=== PATIENT | female | born 1940 | race Caucasian/White ===

== ENCOUNTER 2017-08-13 16:41 | Inpatient (IN) | payer MEDICARE ==
[~2017-08-13] VITALS: Ht 172.7 cm; Wt 78.9 kg
[2017-08-13 16:50] VITALS: BP 128/66
[2017-08-13] MEDS ORDERED: KLOR-CON 1010 MEQ PO (16:52)
[2017-08-13] MEDS ORDERED: LASIX 40 MG TAB40 M2 PO (16:52)
[2017-08-13] MEDS ORDERED: CARVEDILOL3.125 MG PO (16:53)
[2017-08-13] MEDS ORDERED: LISINOPRIL5 MG PO (16:53)
[2017-08-13] MEDS ORDERED: GLIPIZIDE 10 MG10 MG PO (16:53)
[2017-08-13] MEDS ORDERED: LEVEMIR SUBQ (16:54)
[2017-08-13] MEDS ORDERED: SYNTHROID100 MCG PO (16:54)
[2017-08-13] MEDS ORDERED: ASPIR 8181 MG PO (16:54)
[2017-08-13] MEDS ORDERED: COUMADIN 3 MG TA3 M1 PO (16:54)
[2017-08-13 17:48] LABS: INFLUENZA A ANTIGEN None Detected (None Detect); INFLUENZA B ANTIGEN None Detected (None Detect)
[2017-08-13 17:50] LABS: HEMATOCRIT 38.4 % (37.0-47.0); HEMOGLOBIN 12.7 gm/dL (12.0-15.0); MCH 29.9 pg (26.0-34.0); MCV 90.7 fL (80.0-100.0); MPV 8.4 fl. (7.2-11.1); NUCLEATED RBCS 0 /100WBC; PLATELET COUNT* 361 thou/uL (150-400); RBC 4.24 mil/uL (4.20-5.00); RDW-CV 14.9 % (10.5-14.5); WBC 15.3 thou/uL (4.0-11.0)
[2017-08-13 17:56] LABS: ANION GAP 11 mmol/L (7-16); BUN 24 mg/dL (7-18); CALCIUM 8.8 mg/dL (8.5-10.1); CHLORIDE 100 mmol/L (98-107); CO2 25 mmol/L (21-32); CREATININE 1.3 mg/dL (0.6-1.3); GLUCOSE 302 mg/dL (70-99); POTASSIUM 3.8 mmol/L (3.5-5.1); SODIUM 136 mmol/L (136-145)
[2017-08-13 17:58] LABS: APTT 33.1 Seconds (25.0-31.3); PROTIME 19.4 Seconds (9.20-11.50)
[2017-08-13 18:07] LABS: ALBUMIN 2.6 g/dL (3.4-5.0); ALKALINE PHOSPHATASE 111 U/L (46-116); NT-PRO BRAIN NAT PEPTIDE 13598 pg/mL (<300); SGOT 28 U/L (15-37); SGPT 33 U/L (30-65); TOTAL BILIRUBIN 0.8 mg/dL (<0.1-1.0); TOTAL PROTEIN 7.3 g/dL (6.4-8.2); TROPONIN-I LEVEL <0.06 ng/mL (<0.06); URIC ACID* 6.5 mg/dL (2.6-7.2)
[2017-08-13 18:21] LABS: ABSOLUTE LYMPHOCYTES 1.2 thou/uL (0.8-5.3); ABSOLUTE NEUTROPHILS 13.3 thou/uL (1.6-8.1)
[2017-08-13 18:22] LABS: ABSOLUTE MONOCYTES 0.8 thou/uL (0.0-1.2); PLATELET ESTIMATE ADEQUATE
[2017-08-13 18:31] LABS: URINE BILIRUBIN NEGATIVE (Negative); URINE BLOOD 2+ (Negative); URINE CLARITY SL CLOUDY; URINE COLOR YELLOW; URINE GLUCOSE-RANDOM NEGATIVE (Negative); URINE KETONES NEGATIVE (Negative); URINE LEUKOCYTES 3+ (Negative); URINE NITRITE POSITIVE (Negative); URINE PROTEIN 1+ (Negative)
[2017-08-13 18:37] LABS: CASTS None Seen /LPF (None Seen); CRYSTALS None Seen /LPF (None Seen); SQUAMOUS >10 Many /LPF (0-3); URINE RBC 0-2 Rare /HPF (0-2); URINE WBC >25 Many /HPF (0-5)
[2017-08-13 18:56] LABS: ESR (SEDRATE) 69 mm/hr (0-30)
[2017-08-13 19:55] VITALS: BP 126/70
[2017-08-13 20:00] VITALS: BP 132/72
[2017-08-14] VITALS (7 sets, daily range): BP systolic 130–160; BP diastolic 85–92
[2017-08-14 04:22] LABS: ABSOLUTE LYMPHOCYTES 0.5 thou/uL (0.8-5.3); ABSOLUTE MONOCYTES 0.1 thou/uL (0.0-1.2); ABSOLUTE NEUTROPHILS 9.6 thou/uL (1.6-8.1); BASOPHILS 0.1 %; HEMATOCRIT 37.9 % (37.0-47.0); HEMOGLOBIN 12.3 gm/dL (12.0-15.0); LYMPHOCYTES 4.9 %; MCH 29.5 pg (26.0-34.0); MCHC 32.6 g/dL (28.0-37.0); MCV 90.7 fL (80.0-100.0); MONOCYTES 1.1 %; MPV 8.2 fl. (7.2-11.1); NUCLEATED RBCS 0 /100WBC; PLATELET COUNT* 315 thou/uL (150-400); POLYS 93.9 %; RBC 4.18 mil/uL (4.20-5.00); RDW-CV 15.1 % (10.5-14.5); WBC 10.3 thou/uL (4.0-11.0)
[2017-08-14 04:39] LABS: INR 2.1; PROTIME 20.1 Seconds (9.20-11.50)
[2017-08-14 04:54] LABS: CALCIUM 8.2 mg/dL (8.5-10.1); CREATININE 1.1 mg/dL (0.6-1.3)
[2017-08-15] VITALS (8 sets, daily range): BP systolic 142–150; BP diastolic 81–94
[2017-08-15 05:42] LABS: ABSOLUTE LYMPHOCYTES 0.8 thou/uL (0.8-5.3); ABSOLUTE MONOCYTES 0.6 thou/uL (0.0-1.2); ABSOLUTE NEUTROPHILS 14.5 thou/uL (1.6-8.1); BASOPHILS 0.2 %; HEMATOCRIT 37.5 % (37.0-47.0); HEMOGLOBIN 12.3 gm/dL (12.0-15.0); LYMPHOCYTES 5.2 %; MCH 29.5 pg (26.0-34.0); MCHC 32.7 g/dL (28.0-37.0); MCV 90.1 fL (80.0-100.0); MONOCYTES 3.5 %; MPV 8.5 fl. (7.2-11.1); NUCLEATED RBCS 0 /100WBC; PLATELET COUNT* 379 thou/uL (150-400); POLYS 91.1 %; RBC 4.17 mil/uL (4.20-5.00); RDW-CV 15.2 % (10.5-14.5)
[2017-08-15 05:51] LABS: INR 2.2; PROTIME 21.4 Seconds (9.20-11.50)
[2017-08-15 05:59] LABS: ALBUMIN 2.5 g/dL (3.4-5.0); CALCIUM 8.6 mg/dL (8.5-10.1); CREATININE 1.2 mg/dL (0.6-1.3); POTASSIUM 4.1 mmol/L (3.5-5.1); TOTAL BILIRUBIN 0.4 mg/dL (<0.1-1.0); TOTAL PROTEIN 6.9 g/dL (6.4-8.2)
[2017-08-15 09:09] LABS: GLYCOHEMOGLOBIN (HGB A1C) 7.7 % (4.8-5.6)
--- NOTE | 2017-08-15 15:29 | EKG ---
[place] [address] ELECTROCARDIOGRAM REPORT Name: MILIND GRAJEDA Room: [address] ADM IN .R.#: [id number] Admission: 08/13/17 Attend Phys: Rikki Castro MD Discharge: Date of : 36 Report #: [id number] THIS REPORT FOR: //name// [facility] ED Test Date: 2017-08-13 Test Time: 17:29:07 Pat Name: MILIND GRAJEDA Department: Room: [facility] Gender: Head School Custodian: Marc DANIELLE : 1940 Requested By: Brittany Irby Order Number: [id number] MD: Cricket Khoury Measurements Intervals [place] Rate: 90 P: IN: QRS: -38 QRSD: 128 T: -2 QT: 417 QTc: 511 Interpretive Statements Atrial fibrillation Nonspecific IVCD with LAD LVH with secondary repolarization abnormality Anterior Q waves, possibly due to LVH No previous ECG available for comparison Electronically Signed On 08-15-2017 15:29:26 ROTARY SCREEN PRINTING MACHINE OPERATOR by Cricket Khoury [email or web address] <ELECTRONICALLY SIGNED> By: Cricket Khoury MD, FACC 08/15/17 1529 1729 1729 Cricket Khoury MD, [facility] /EPI
--- NOTE | 2017-08-15 15:32 | EKG ---
[place] [address] ELECTROCARDIOGRAM REPORT Name: MILIND GRAJEDA Room: [address] ADM IN M.R.#: [id number] Admission: 08/13/17 Attend Phys: Rikki Castro MD Discharge: Date of : 38 Report #: [id number] THIS REPORT FOR: //name// [facility] Test Date: 2017-08-13 Test Time: 20:59:25 Pat Name: MILIND GRAJEDA Department: Room: [address] Gender: F Pre Owned Sales Consultant: JENNIFER : 1940 Requested By: Rikki Castro Order Number: [id number] Valeria MD: Cricket Khoury Measurements Intervals [place] Rate: 100 P: SC: QRS: -79 QRSD: 125 T: 184 QT: 395 QTc: 510 Interpretive Statements Atrial fibrillation Nonspecific IVCD with LAD Consider anterior infarct Nonspecific T abnormalities, lateral leads Baseline wander in lead(s) V2 No previous ECG available for comparison Electronically Signed On 08-15-2017 15:31:47 DISPENSING OPERATOR by Cricket Khoury [email or web address] <ELECTRONICALLY SIGNED> By: Cricket Khoury MD, FACC 08/15/17 1531 58 58 Cricket Khoury MD, FAC /EPI
--- NOTE | 2017-08-15 15:45 | EKG ---
[place] [address] ELECTROCARDIOGRAM REPORT Name: MILIND GRAJEDA Room: [address] ADM IN .R.#: [id number] Admission: 08/13/17 Attend Phys: Rikki Castro MD Discharge: Date of : 36 Report #: [id number] THIS REPORT FOR: //name// [facility] Test Date: 2017-08-14 Test Time: 20:48:09 Pat Name: MILIND GRAJEDA Department: Room: [address] Gender: F Data Entry: : 1940 Requested By: Rikki Castro Order Number: [id number] Reading MD: Cricket Khoury Measurements Intervals [place] Rate: 119 P: MT: QRS: 143 QRSD: 130 T: 215 QT: 359 QTc: 506 Interpretive Statements Atrial fibrillation Nonspecific intraventricular conduction delay Anteroseptal infarct, old Borderline repolarization abnormality No previous ECG available for comparison Electronically Signed On 08-15-2017 15:45:39 BELT LINE FEEDER by Cricket Khoury [email or web address] <ELECTRONICALLY SIGNED> By: Cricket Khuory MD, [facility] 08/15/17 1545 47 47 Cricket Khoury MD, FACC /EPI
--- NOTE | 2017-08-15 16:55 | CON ---
[address] [address] CONSULTATION Name: MILIND GRAJEDA Room: [address] ADM IN M.R.#: [id number] Admission: 08/13/17 Attend Phys: Rikki Castro MD Discharge: Date of : 38 Report #: [id number] THIS REPORT FOR: //name// CC: Rikki Triplett MD [facility] Amberly Patton MD INDICATION: Atrial fibrillation with rapid ventricular response rate, palpitations, shortness of breath, and chest pain. HISTORY OF PRESENT ILLNESS: The patient is a 77-year-old white female who was admitted to the hospital yesterday on after family noted her to be somewhat short of breath and having rapid heart rate. In the emergency room, she was found to have rapid ventricular response to her chronic atrial fibrillation. She was started on a diltiazem drip for rate control with improvement in her symptoms. She reports chest pain chronically. This apparently is nothing new to her. It is intermittent and worse with activity consistent with angina. She had some dyspnea and shortness of breath that also improved with rate control. She does not appear dyspneic at the time of my interview. She has been placed on IV Lasix with prompt and good response. At the time of my interview, she is without cardiac complaint. She continues to have a slightly rapid ventricular response to her chronic atrial fibrillation. Her primary land conservation specialist had discussed biventricular ICD placement after a recent echocardiogram showed drop in EF to 30-35%. At this point in time, she wishes to continue to think about that. She is also refused invasive evaluation for a positive stress test earlier this year in August. The stress test showed evidence of anterolateral infarct with periinfarct ischemia. Her labs show an elevated NT-proBNP consistent with acute exacerbation of her chronic systolic heart failure. Her troponins are less than 0.06 indicating no significant myocardial necrosis at this time. PAST MEDICAL HISTORY: 1. Ischemic cardiomyopathy, EF 30-35%. 2. Chronic atrial fibrillation. 3. Type 2 diabetes mellitus. 4. Hypertension. 5. Chronic left bundle branch block. 6. History of coronary artery disease based on noninvasive studies. 7. Stress testing 09/01/2016, that showed anterolateral infarct with periinfarct ischemia and an EF of 51%. PAST SURGICAL HISTORY: 1. Hysterectomy. 2. Tonsillectomy. 3. Partial thyroide[place] [address] CONSULTATION Name: MILIND GRAJEDA Room: [address]#: [id number] Admission: 08/13/17 Attend Phys: Rikki Castro MD Discharge: Date of : 38 Report #: [id number] FAMILY HISTORY: The patient's father at 59 with heart disease. The patient's mother at 57 with heart disease. SOCIAL HISTORY: The patient is . She does not smoke. She does not drink alcohol. ALLERGIES: She has no medical allergies. HOME MEDICATIONS: Aspirin 81 mg daily, carvedilol 3.125 mg b.i.d., furosemide 40 mg p.o. b.i.d., glipizide 10 mg daily, Levemir 100 units or dose unknown daily, Synthroid 100 mcg daily, lisinopril 5 mg daily, potassium chloride 10 mEq daily, and warfarin 3 mg daily. REVIEW OF SYSTEMS: A 14-point review of systems is positive for convulsions as a child, cough, COPD, emphysema, palpitations, chest pain, dyspnea, orthopnea, paroxysmal nocturnal dyspnea, syncope or near syncope, murmurs, diabetes, thyroid disease, anemia, history of thyroid cancer status post thyroidectomy, glasses without acute visual loss, decreased hearing and partial dentures. Otherwise, 14-point review of systems is negative. PHYSICAL EXAMINATION: VITAL SIGNS: Blood pressure 144/81, pulse is in the low 100s and irregular. GENERAL: This is a pleasant lady, in no distress. Mood and affect appropriate. HEENT: The patient is wearing glasses. Extraocular muscles intact. Mucous membranes are moist. NECK: Shows no jugular venous distention. I do not appreciate carotid bruit. CHEST: Reveals clear lung [place] without wheezes or rales. CARDIAC: Reveals an irregularly irregular rhythm that is slightly tachycardic. I do not appreciate obvious murmur or gallop. ABDOMEN: Reveals normal bowel sounds. The abdomen is soft and nontender. EXTREMITIES: Shows no edema. Peripheral pulses are palpable. SKIN: Warm and dry. A 12-lead EKG shows atrial fibrillation, left bundle branch block and rapid ventricular response rate. CT of the chest shows bilateral pleural effusions that are small. Portable chest x-ray shows bibasilar densities consistent with effusion and/or atelectasis and cardiomegaly. Labs are reviewed. Sodium 142, potassium 4.1, chloride 110, bicarb 20, BUN 37, creatinine 1.2, serum glucose 163. Troponin less than 0.06 on 2 separate occasions. NT-proBNP 13,598. White blood cell count 16.0, hemoglobin 12.3, and platelet count 379,000. IMPRESSION AND RECOMMENDATIONS: 1. Acute on chronic systolic heart failure. Continue IV Lasix for adequate diuresis. May need to adjust home doses depending on her response. Continue [facility] [address] [place] [address] CONSULTATION Name: MILIND GRAJEDA Room: [address] IN M.R.#: [id number] Admission: 08/13/17 Attend Phys: Rikki Castro MD Discharge: Date of : 38 Report #: [id number] potassium supplement. Start electrolyte protocol. Repeat echocardiogram. 2. Chest pain. Troponins are negative thus far. She has a recent stress test that shows positive results. I would like to repeat to see if this has worsened at all and rediscuss invasive evaluation with the patient. 3. Atrial fibrillation with rapid ventricular response, increasing carvedilol at this time. The patient is on a diltiazem drip. She may need multiple agents for adequate rate control. 4. Ischemic cardiomyopathy, presently with exacerbation of heart failure. She is on IV Lasix. Increasing carvedilol, continue lisinopril at current dose. She is pondering whether or not to proceed with biventricular ICD placement. Echo results pending. 5. Hypertension. Blood pressure appears to be relatively well controlled at this point in time. 6. Possible hyperlipidemia. We will check fasting lipid profile. 7. Type 2 diabetes mellitus, per primary physician. <ELECTRONICALLY SIGNED> By: Cricket Khoury MD, [facility] 08/15/17 1655 1006 [id number] Alber Khoury MD, FACC /nt
[2017-08-16] VITALS: BP 146/70
[2017-08-16 04:00] VITALS: BP 149/94
[2017-08-16 04:53] LABS: INR 2.6; PROTIME 24.9 Seconds (9.20-11.50)
[2017-08-16 06:24] LABS: ANION GAP 14 mmol/L (7-16); BUN 40 mg/dL (7-18); CALCIUM 8.4 mg/dL (8.5-10.1); CHLORIDE 112 mmol/L (98-107); CHOLESTEROL 134 mg/dL (<200); CO2 19 mmol/L (21-32); CREATININE 1.3 mg/dL (0.6-1.3); GLUCOSE 78 mg/dL (70-99); HDL CHOLESTEROL 31 mg/dL (>40); LDL CHOLESTEROL 87 mg/dL (<100); POTASSIUM 4.3 mmol/L (3.5-5.1); SERUM ASSESSMENT Clear; SODIUM 145 mmol/L (136-145); TC:HDL 4.3 Ratio (Not establshd); TRIGLYCERIDE 82 mg/dL (<150); VLDL 16 mg/dL (<40)
[2017-08-16 08:30] VITALS: BP 146/92
[2017-08-16 11:26] VITALS: BP 143/71
[2017-08-16 16:00] VITALS: BP 141/77
--- NOTE | 2017-08-16 16:24 | CARDNUC ---
[place] [address] CARDIAC NUCLEAR IMAGING REPORT Name: MILIND GRAJEDA Room: [address] IN [facility]#: [id number] Admission: 08/13/17 Attend Phys: Rikki Castro, Discharge: Date of : 36 Date of Service: 08/16/17 1624 Report #: [id number] THIS REPORT FOR: //name// APPROVED REPORT Exam: Nuclear Stress Test Indication: Chest pain, Dyspnea, Atrial Fibrillation Patient Location: In-Patient Room #: 209 Stress Tech: Yazmin Paniagua Stress Nurse: Judy Heaton RN NM Tech:DANTE Kaur Ht: 5 ft 8 in Wt: 174 lbs BSA: 1.93 m2 BMI: 26.45 Medical History Medical History: mi,cad,htn,dm,lbbb Medications: Carvedilol, hydralaziine, diltiazem, warfain, aspirin, lisinopril Allergies: nkda Cardiac Risk Factors: Age, FHX of CAD, HTN, , DM Stress Test Details Stress Test: Pharmacologic stress testing performed using 0.4 mg of regadenoson per 5 mL given IV over 10 seconds. Reason for pharmacologic stress test: physical limitation. HR Resting HR: 97 bpm Max Heart Rate (APMHR): 141 bpm Max HR Achieved: 97 bpm Target HR (85% APMHR): 119 bpm % of APMHR: 68 Recovery HR: 102 bpm BP Resting BP: 164/110 mmHg Max BP: 164/79 mmHg ECG Resting ECG: atrial fibrillation, left bundle-branch block Stress ECG: atrial fibrillation, left bundle-branch block ST Change: None Arrhythmia: [place] [address] CARDIAC NUCLEAR IMAGING REPORT Name: MILIND GRAJEDA Room: [address] IN [facility]#: [id number] Admission: 08/13/17 Attend Phys: Rikki Castro, Discharge: Date of : 36 Date of Service: 08/16/17 1624 Report #: [id number] Recovery ECG: atrial fibrillation, left bundle-branch block Recovery ST Change: None Recovery Arrhythmia: None Clinical Reason for Termination: Completed protocol Stress Symptoms: shortness of breath Exercise duration: 0 min sec Exercise capacity: 1 METs Functional Aerobic Impairment 72% The patient had no chest discomfort with Lexiscan infusion. Nurse Comments pt co soa resolved with caffeine Stress ECG Conclusion The baseline 12-lead EKG showed atrial fibrillation with left bundle-branch block. EKGs obtained during and post Lexiscan infusion showed atrial fibrillation with left bundle-branch block. NM EXAM: Myocardial Perfusion REST/STRESS Imaging Protocol: Rest Tc-99m/Stress Tc-99m 1 day Resting Data Rest SPECT myocardial perfusion imaging was performed in supine position 60 minutes following the intravenous injection of 10.8 mCi of Tc-99m Sestamibi. Time of rest injection: 0745 Time of rest imagin The images were gated to evaluate regional wall motion and calculate left ventricular ejection fraction. Administration Route: IV Pharmacologic Stress Pharmacologic stress test was performed by injecting Regadenoson 0.4 mg IV push followed by the intravenous injection of 33.6 mCi of Tc-99m Sestamibi. Time of stress injection: 0945 Time of stress imagin Administration Route: IV Gated Stress SPECT was performed 40 minutes after stress injection. The images were gated to evaluate regional wall motion and calculate left [place] [address] CARDIAC NUCLEAR IMAGING REPORT Name: MILIND GRAJEDA Room: [address]#: [id number] Admission: 08/13/17 Attend Phys: Rikki Castro, Discharge: Date of : 36 Date of Service: 08/16/17 1624 Report #: [id number] Study Quality Study: Fair Artifact: Mild Breast artifact Study Data At rest, the left ventricular ejection fraction was 30%.. Post stress, the left ventricular ejection was 39%.. TID = 0.91. Underlying left bundle branch block renders gated images less reliable in the determination of overall left ventricular systolic function. Recommend echocardiographic verification. Perfusion There is a moderate size mild intensity defect in the mid to distal anterior wall that resolves somewhat with prone imaging on rest and stress images consistent with breast attenuation artifact. No other defects are identified. Wall Motion Due to underlying left bundle branch block gated images are not reliable. Nuclear Conclusion ECG Findings: non-diagnostic Clinical Findings: negative for ischemia Nuclear Findings: negative for ischemia Exercise Capacity: not assessed Left Ventricular Function: unable to assess accurately Risk Study: low No reversible defects are identified to suggest inducible ischemia. There is a fixed defect of the mid to distal anterior wall that resolves mostly with prone imaging consistent with breast attenuation artifact. Gated images are not reliable for estimated left ventricular function due to underlying left bundle branch block. Recommend echo follow-up. <Conclusion> The baseline 12-lead EKG showed atrial fibrillation with left bundle-branch block. EKGs obtained during and post Lexiscan infusion showed atrial fibrillation with left bundle-branch block. <ELECTRONICALLY SIGNED> By: Cricket Khoury MD, FACC 08/16/17 1624 1624 1624 Cricket Khoury MD, FACC /INF
[2017-08-16 20:00] VITALS: BP 150/69
[2017-08-17] VITALS: BP 136/84
[2017-08-17 04:00] VITALS: BP 138/97
[2017-08-17 04:46] LABS: MCH 29.9 pg (26.0-34.0); MCHC 33.2 g/dL (28.0-37.0); NUCLEATED RBCS 0 /100WBC; PLATELET COUNT* 361 thou/uL (150-400); RDW-CV 15.2 % (10.5-14.5); WBC 14.4 thou/uL (4.0-11.0)
[2017-08-17 04:54] LABS: ALBUMIN 2.5 g/dL (3.4-5.0); CALCIUM 8.4 mg/dL (8.5-10.1); CREATININE 1.4 mg/dL (0.6-1.3); POTASSIUM 4.3 mmol/L (3.5-5.1); TOTAL BILIRUBIN 0.5 mg/dL (<0.1-1.0); TOTAL PROTEIN 6.4 g/dL (6.4-8.2)
[2017-08-17 05:02] LABS: INR 2.5; PROTIME 24.2 Seconds (9.20-11.50)
[2017-08-17 05:58] LABS: ABSOLUTE LYMPHOCYTES 0.7 thou/uL (0.8-5.3); ABSOLUTE MONOCYTES 0.4 thou/uL (0.0-1.2); ABSOLUTE NEUTROPHILS 13.2 thou/uL (1.6-8.1); ANISOCYTOSIS 1+; PLATELET ESTIMATE ADEQUATE
[2017-08-17 05:59] LABS: POIKILOCYTOSIS 1+
[2017-08-17 08:00] VITALS: BP 162/109
[2017-08-17 11:43] VITALS: BP 162/75
[2017-08-17] MEDS ORDERED: PREDNISONE 10 M10 MG PO (13:38)
[2017-08-17] MEDS ORDERED: LEVAQUIN 500 M500 M2 PO (13:38)
[2017-08-17 15:31] VITALS: BP 163/98
[2017-08-17 20:55] VITALS: BP 166/100
[2017-08-18] VITALS: BP 155/91
[2017-08-18 03:51] VITALS: BP 160/109
[2017-08-18 05:00] LABS: INR 2.7; PROTIME 25.9 Seconds (9.20-11.50)
[2017-08-18 08:00] VITALS: BP 167/110
[2017-08-18 11:30] VITALS: BP 149/113
[2017-08-18 14:05] VITALS: BP 149/113
[2017-08-18] MEDS ORDERED: ALLOPURINOL 10100 M3 PO (14:53)
[2017-08-18] MEDS ORDERED: MIRALAX17 GM PO (15:02)
[2017-08-18 15:30] VITALS: BP 147/89
[2017-08-18] MEDS ORDERED: TOPROL XL100 MG PO (16:56)
[2017-08-18] MEDS ORDERED: CARDIZEM CD180 MG PO (17:34)
[2017-08-18] MEDS ORDERED: ACETAMINOPHEN325 MG PO (17:53)
[2017-08-18] MEDS ORDERED: COLACE 100 MG100 MG PO (17:54)
== END 2017-08-18 18:38 | disposition home health service (06) | DRG 177 ==
LOC: M.ERS 16:41 → M.TBA-ER 18:17 → M.2W 18:17
PROVIDERS: Internal Medicine Cardiovascular Disease; Nurse Practitioner Family; ADMIT Internal Medicine
DX: J15.6 Pneumonia due to other Gram-negative bacteria (principal); I50.23 Acute on chronic systolic (congestive) heart failure; I13.0 Hypertensive heart and chronic kidney disease with heart failure and stage 1 through stage 4 chronic kidney disease, or unspecified chronic kidney disease; N17.9 Acute kidney failure, unspecified; R65.10 Systemic inflammatory response syndrome (SIRS) of non-infectious origin without acute organ dysfunction; N39.0 Urinary tract infection, site not specified; M10.9 Gout, unspecified; E11.65 Type 2 diabetes mellitus with hyperglycemia; I25.5 Ischemic cardiomyopathy; I48.2 Chronic atrial fibrillation; I44.7 Left bundle-branch block, unspecified; E11.22 Type 2 diabetes mellitus with diabetic chronic kidney disease; I25.10 Atherosclerotic heart disease of native coronary artery without angina pectoris; E89.0 Postprocedural hypothyroidism; N18.9 Chronic kidney disease, unspecified; Z79.82 Long term (current) use of aspirin; Z79.899 Other long term (current) drug therapy; Z85.850 Personal history of malignant neoplasm of thyroid; Z90.710 Acquired absence of both cervix and uterus; Z82.49 Family history of ischemic heart disease and other diseases of the circulatory system; Z79.01 Long term (current) use of anticoagulants

== ENCOUNTER 2020-09-14 09:26 | Inpatient (IN) | payer MEDICARE ==
[~2020-09-14] VITALS: Ht 144.8 cm; Wt 85.9 kg
[~2020-09-14 09:26] MED LIST: ACETAMINOPHEN325 MG PO; ALLOPURINOL 10100 M3 PO; ASPIR 8181 MG PO; CARDIZEM CD180 MG PO; CARVEDILOL3.125 MG PO; COLACE 100 MG100 MG PO; COUMADIN 3 MG TA3 M1 PO; GLIPIZIDE 10 MG10 MG PO; KLOR-CON 1010 MEQ PO; LASIX 40 MG TAB40 M2 PO; LEVAQUIN 500 M500 M2 PO; LEVEMIR SUBQ; LISINOPRIL5 MG PO; MIRALAX17 GM PO; PREDNISONE 10 M10 MG PO; SYNTHROID100 MCG PO; TOPROL XL100 MG PO
[2020-09-14 09:30] VITALS: BP 111/59
[2020-09-14 10:04] LABS: HEMATOCRIT 39.6 % (37.0-47.0); HEMOGLOBIN 12.3 gm/dL (12.0-15.0); MCH 29.7 pg (26.0-34.0); MCV 95.6 fL (80.0-100.0); MPV 9.5 fl. (7.2-11.1); NUCLEATED RBCS 0 /100WBC; PLATELET COUNT* 198 thou/uL (150-400); RBC 4.14 mil/uL (4.20-5.00); RDW-CV 15.8 % (10.5-14.5); WBC 11.2 thou/uL (4.0-11.0)
[2020-09-14 10:16] LABS: APTT 42.9 Seconds (25.0-31.3); INR 2.9; PROTIME 29.2 Seconds (9.20-11.50)
[2020-09-14 10:39] LABS: ALBUMIN 2.9 g/dL (3.4-5.0); ALKALINE PHOSPHATASE 106 U/L (46-116); BUN 81 mg/dL (7-18); CALCIUM 8.8 mg/dL (8.5-10.1); CO2 20 mmol/L (21-32); CREATININE 2.6 mg/dL (0.6-1.3); LIPASE 1265 U/L (73-393); MAGNESIUM 2.6 mg/dL (1.8-2.4); NT-PRO BRAIN NAT PEPTIDE > 35000 pg/mL (<300); SGOT 88 U/L (15-37); SGPT 49 U/L (30-65); TOTAL BILIRUBIN 0.9 mg/dL (<0.1-1.0); TOTAL PROTEIN 7.2 g/dL (6.4-8.2)
[2020-09-14 10:41] LABS: ABSOLUTE LYMPHOCYTES 1.2 thou/uL (0.8-5.3); PLATELET ESTIMATE ADEQUATE
[2020-09-14 10:52] LABS: GLUCOSE 841 mg/dL (70-99)
[2020-09-14 11:17] LABS: ANION GAP 13 mmol/L (7-16); CHLORIDE 89 mmol/L (98-107); POTASSIUM 4.7 mmol/L (3.5-5.1); SODIUM 122 mmol/L (136-145)
[2020-09-14 14:45] VITALS: BP 116/60
[2020-09-14 15:09] LABS: HEMATOCRIT 36.8 % (37.0-47.0); HEMOGLOBIN 11.8 gm/dL (12.0-15.0); MCH 29.4 pg (26.0-34.0); MCHC 32.1 g/dL (28.0-37.0); MCV 91.8 fL (80.0-100.0); MPV 9.5 fl. (7.2-11.1); RBC 4.01 mil/uL (4.20-5.00); RDW-CV 15.1 % (10.5-14.5); WBC 13.5 thou/uL (4.0-11.0)
--- NOTE | 2020-09-14 15:45 | NUR ---
MARKET RESEARCH SENIOR PROJECT MANAGER AT BEDSIDE.
[2020-09-14 16:08] VITALS: BP 116/61
[2020-09-14 16:20] LABS: URINE BILIRUBIN NEGATIVE (Negative); URINE BLOOD TRACE (Negative); URINE CLARITY SL CLOUDY; URINE COLOR YELLOW; URINE GLUCOSE-RANDOM 3+ (Negative); URINE KETONES NEGATIVE (Negative); URINE LEUKOCYTES-REFLEX 1+ (Negative); URINE NITRITE-REFLEX NEGATIVE (Negative); URINE PROTEIN NEGATIVE (Negative)
[2020-09-14 16:27] LABS: HYALINE CASTS 4-10 Moderate /LPF (None Seen); SQUAMOUS 4-10 Moderate /LPF (0-3)
[2020-09-14 16:28] LABS: BACTERIA-REFLEX >30 Many /HPF (None Seen); URINE WBC-REFLEX >25 Many /HPF (0-5)
[2020-09-14 16:29] LABS: CRYSTALS None Seen /LPF (None Seen); MUCUS None Seen strn/LPF (None Seen); URINE RBC 0-2 Rare /HPF (0-2)
--- NOTE | 2020-09-14 16:50 | 2DMMODE ---
[place] [address] 2 D/M-MODE ECHOCARDIOGRAM Name: MILIND GRAJEDA I Room: [address] IN [facility]#: [id number] Admission: 09/14/20 Attend Phys: Quynh Lawson MD Discharge: Date of : 38 Date of Service: 09/14/20 1650 Report #: [id number] THIS REPORT FOR: cc: Physician not on staff Physician not on staff Samy Goins MD [facility] ~ APPROVED REPORT Study performed: 09/14/2020 15:37:18 EXAM: Comprehensive 2D, Doppler, and color-flow Echocardiogram Patient Location: In-Patient Room #: er Status: routine BSA: 1.91 HR: 72 bpm BP: 119/70 mmHg Rhythm: NSR Other Information Study Quality: Good Indications Dyspnea 2D Dimensions IVSd: 9.28 (7-11mm) LVOT Diam: 17.37 (18-24mm) LVDd: 41.30 mm PWd: 9.38 (7-11mm) Ascending Ao: 29.17 (22-36mm) LVDs: 36.24 (25-40mm) Aortic Root: 26.12 mm Volumes Left Atrial Volume (Systole) LA ESV Index: 73.10 mL/m2 Aortic Valve AoV Peak Rosales.: 1.24 m/s AO Peak Gr.: 6.14 mmHg LVOT Max P.29 mmHg AO Mean Gr.: 2.96 mmHg LVOT Mean P.51 mmHg LVOT Max V: 0.57 m/s AO V2 VTI: 18.85 cm LVOT Mean V: 0.33 m/s ELAN (VTI): 1.15 cm2 LVOT V1 VTI: 9.13 cm AI [place]: 2.10 m/s2 [place] [address] 2 D/M-MODE ECHOCARDIOGRAM Name: MILIND GRAJEDA I Room: [address] IN .R.#: [id number] Admission: 09/14/20 Attend Phys: Quynh Lawson MD Discharge: Date of : 36 Date of Service: 09/14/20 1650 Report #: [id number] AI PHT: 525.65 ms Mitral Valve MV Decel. Time: 173.84 ms MV PHT: 50.41 ms MVA (PHT): 4.36 cm2 TDI Medial E' Rosales.: 0.10 m/s Lateral E' Rosales.: 0.09 m/s Pulmonary Valve PV Peak Rosales.: 0.96 m/s PV Peak Gr.: 3.70 mmHg Tricuspid Valve RAP Estimate: 10.00 mmHg TR Peak Gr.: 53.54 mmHg RVSP: 63.00 mmHg PA Pressure: 63.00 mmHg Left Ventricle The left ventricle is normal size. Regional wall motion abnormalities are noted with inferobasilar hypokinesis. There is normal left ventricular wall thickness. Left ventricular systolic function is moderately decreased. LVEF is 40%. Grade IV - fixed restrictive diastolic dysfunction. Right Ventricle The right ventricle is normal size. The right ventricular systolic function is normal. Pacemaker lead is present in the right ventricle. Atria Left atrium is severely dilated. Right atrium is moderately dilated. Aortic Valve Mild aortic valve sclerosis. Mild aortic regurgitation. No hemodynamically significant valvular aortic stenosis. Mitral Valve The mitral valve is normal in structure. Moderate to severe mitral regurgitation No evidence of mitral valve stenosis. Tricuspid Valve The tricuspid valve is normal in structure. Moderate tricuspid regurgitation. Moderate [place] [address] 2 D/M-MODE ECHOCARDIOGRAM Name: MILIND GRAJEDA I Room: [address]#: [id number] Admission: 09/14/20 Attend Phys: Quynh Lawson MD Discharge: Date of : 36 Date of Service: 09/14/20 1650 Report #: [id number] Pulmonic Valve The pulmonary valve is normal in structure. Mild pulmonic regurgitation. Great Vessels The aortic root is normal in size. IVC is dilated. Pericardium There is no pericardial effusion. <Conclusion> The left ventricle is normal size. There is normal left ventricular wall thickness. Left ventricular systolic function is moderately decreased. LVEF is 40%. The right ventricle is normal size. Left atrium is severely dilated. Right atrium is moderately dilated. Mild aortic valve sclerosis. Mild aortic regurgitation. No hemodynamically significant valvular aortic stenosis. The mitral valve is normal in structure. Moderate to severe mitral regurgitation The tricuspid valve is normal in structure. Moderate tricuspid regurgitation. Moderate pulmonary hypertension. IVC is dilated. There is no pericardial effusion. Regional wall motion abnormalities are noted with inferobasilar hypokinesis. Pacemaker lead is present in the right ventricle. <ELECTRONICALLY SIGNED> By: Samy Goins MD, FACC 09/14/201649 49 49 Samy Goins MD, FACC /INF
[2020-09-14 19:41] VITALS: BP 95/59
[2020-09-14 21:42] VITALS: BP 111/52
[2020-09-14 22:41] VITALS: BP 108/61
[2020-09-15] VITALS (14 sets, daily range): BP systolic 81–118; BP diastolic 39–65
[2020-09-15 04:39] LABS: CREATININE 2.1 mg/dL (0.6-1.3); POTASSIUM 4.1 mmol/L (3.5-5.1)
--- NOTE | 2020-09-15 09:56 | NUR ---
PATIENT A&O X 3-4 WITH CONFUSION, PLEASANT AND COOPERATIVE WITH CARES. C/O PAIN ONLY IN RIGHT ANKLE BUT STATES THAT IT ONLY HURTS WHEN SHE MOVES IT OR STANDS ON IT. FREQUENT URINATION. PATIENT WILL NOT USE CALL LIGHT, FREQUENT REMINDERS NEEDED. NO FURTHER CONCERNS AT THIS TIME. WILL CONTINUE TO MONITOR AND CARE PER PLAN OF CARE.
--- NOTE | 2020-09-15 14:50 | NUR ---
ICU rounds: Tele status. Cardiology following. Pt is A&O. Resides at home. Has a cane for mobility. Supportive children. Hx of [facility]. Goal is home at tn. Following.
--- NOTE | 2020-09-15 16:06 | EKG ---
[place] [address] ELECTROCARDIOGRAM REPORT Name: TARASMILIND Popeye Room: [address] IN [facility].#: [id number] Admission: 09/14/20 Attend Phys: Quynh Lawson MD Discharge: Date of : 36 Date of Service: 09/14/20 0932 Report #: [id number] THIS REPORT FOR: //name// [facility] ED Test Date: 2020-09-14 Test Time: 09:32:48 Pat Name: MILIND GRAJEDA Department: Room: [facility] Gender: F Diamond Broker: JUAN : 1940 Requested By: Mal Salinas Order Number: [id number] MD: Samy Goins Measurements Intervals [place] Rate: 70 P: 0 RI: 278 QRS: 110 QRSD: 126 T: -67 QT: 421 QTc: 455 Interpretive Statements Ventricular-paced rhythm No further analysis attempted due to paced rhythm Compared to ECG 08/14/2017 20:48:09 Atrial fibrillation no longer present Intraventricular conduction delay persists Myocardial infarct finding no longer present Electronically Signed On 09-15-2020 16:06:16 PIZZA BAKER by Samy Goins [email or web address] <ELECTRONICALLY SIGNED> By: Samy Goins MD, FAC 09/15/20 1606 1 1 Samy Goins MD, [facility] /EPI
--- NOTE | 2020-09-15 18:59 | NUR ---
RECEIVED REPORT FROM NATALIA FOLEY IN ICU. PT TRANSFERRED TO TELE FLOOR AROUND 1850 AND SETTELED IN. PT ORIENTED TO ROOM, BED AND CALL LIGHT. CARIAC MONITOR PLACED. PT SEEN BY ORTHO RIGHT BEFORE TRANSFER TO TELE - CAM BOOT ORDERED AND PT ABLE TO BE WBAT TO RIGHT ANKLE. HIGH FALL RISK PRECAUTIONS IN PLACE. CALL LIGHT WITHIN REACH. WILL GIVE REPORT TO ALIZA FOLEY.
[2020-09-16] VITALS (7 sets, daily range): BP systolic 111–147; BP diastolic 65–76
[2020-09-16 04:44] LABS: HEMATOCRIT 37.1 % (37.0-47.0); HEMOGLOBIN 12.1 gm/dL (12.0-15.0); MCH 29.5 pg (26.0-34.0); MCHC 32.7 g/dL (28.0-37.0); MCV 90.1 fL (80.0-100.0); MPV 9.3 fl. (7.2-11.1); RBC 4.11 mil/uL (4.20-5.00); RDW-CV 14.8 % (10.5-14.5); WBC 10.7 thou/uL (4.0-11.0)
[2020-09-16 05:05] LABS: CALCIUM 9.1 mg/dL (8.5-10.1); CREATININE 1.9 mg/dL (0.6-1.3); INR 3.2; POTASSIUM 3.9 mmol/L (3.5-5.1); PROTIME 31.5 Seconds (9.20-11.50)
--- NOTE | 2020-09-16 12:25 | NUR ---
Dr recommending SNF, CM to discuss with Pt and dtr, fax referrals. Await therapy evals. Anticipate dc soon.
[2020-09-17] VITALS: BP 124/55
[2020-09-17 04:00] VITALS: BP 130/50
[2020-09-17 04:25] LABS: HEMATOCRIT 37.2 % (37.0-47.0); HEMOGLOBIN 12.3 gm/dL (12.0-15.0); MCH 30.1 pg (26.0-34.0); MCHC 33.2 g/dL (28.0-37.0); MCV 90.6 fL (80.0-100.0); MPV 9.1 fl. (7.2-11.1); RBC 4.1 mil/uL (4.20-5.00); RDW-CV 15.1 % (10.5-14.5); WBC 9.6 thou/uL (4.0-11.0)
[2020-09-17 04:33] LABS: CALCIUM 8.7 mg/dL (8.5-10.1); CREATININE 1.8 mg/dL (0.6-1.3); POTASSIUM 4.7 mmol/L (3.5-5.1)
[2020-09-17 08:30] VITALS: BP 134/64
--- NOTE | 2020-09-17 11:53 | NUR ---
Therapy to see again today, PT recommended home yesterday with family. Following
[2020-09-17 12:11] VITALS: BP 172/122
[2020-09-17 17:09] VITALS: BP 100/53
[2020-09-17 20:00] VITALS: BP 118/76
[2020-09-18] VITALS: BP 92/59
[2020-09-18 04:00] VITALS: BP 111/70
[2020-09-18 04:48] LABS: HEMATOCRIT 36.7 % (37.0-47.0); HEMOGLOBIN 12.1 gm/dL (12.0-15.0); MCH 29.8 pg (26.0-34.0); MCV 90.5 fL (80.0-100.0); MPV 9.4 fl. (7.2-11.1); RBC 4.06 mil/uL (4.20-5.00); RDW-CV 15.2 % (10.5-14.5); WBC 13.1 thou/uL (4.0-11.0)
[2020-09-18 04:54] LABS: CALCIUM 8.4 mg/dL (8.5-10.1); CREATININE 1.7 mg/dL (0.6-1.3); POTASSIUM 4.4 mmol/L (3.5-5.1)
[2020-09-18 05:04] LABS: PROTIME 20.8 Seconds (9.20-11.50)
--- NOTE | 2020-09-18 07:11 | NUR ---
ASSUMED PT CARE AT 1915. NURSING ASSESSMENT COMPLETED AT START OF SHIFT. PT C/O PAIN THIS SHIFT. PRN PAIN MEDS ADMINISTERED. ANXIOUS THIS SHIFT, PRN ATIVAN GIVEN. HOURLY ROUNDING COMPLETED, HIGH FALL PRECAUTIONS IN PLACE. Q2H REPOSITIONING COMPLETED. FLOOR LAYER TILE IN PLACE, A PACED.
[2020-09-18 08:45] VITALS: BP 113/38
--- NOTE | 2020-09-18 11:37 | NUR ---
Dr maldonado sifuentes, spoke with Pt's dtr, faxed referral to Sherice at [facility], await decision to accept. CM to check to see if Pt will need a rapid covid test prior to dc. Following.
[2020-09-18 11:45] VITALS: BP 138/77
--- NOTE | 2020-09-18 12:07 | NUR ---
Pt discharging to [facility] today, facility to picker tender at 3pm. Faxed dc orders. Chart copied. Nurse report number is [phone]. Updated Pt's dtr, dtr to bring Pt's clothes.
--- NOTE | 2020-09-18 13:29 | NUR ---
RECOMMEND A STRETCHER VAN IF PT. LEAVES TODAY OR TOMMORROW UNTIL SHE CAN TOLERATE A SEATED POSITION CONSISTENTLY WHEN TRAVELING TO SNF.
--- NOTE | 2020-09-18 15:08 | NUR ---
RECEIVED REPORT. ASSUMED CARE OF PT AROUND 0730. AM ASSESSMENT AND VITALS COMPLETED CHARTED. MEDS PER EMAR. PT FULLY ORIENTED BUT HAS MOMENTS OF ABSENCE - PROVIDED MADE AWARE, NO NEW ORDERS RECEIVED. THIS EXPLAINED IN REPORT TO SNF [facility]. DISCHARGE ORDERS RECEIED. DISCHARGE COMPLETED DOCUMENTED. IV AND PROJECT CONTROL ANALYST REMOVED. ALL BELONGINGS GATHERED AND SENT OUT WITH THE PT. FAMILY AND SNF AWARE OF F/U APPOINTMENTS WITH CARDIOLOGY AND ORTHO. PT LEFT WITH EMS AROUND 1508, GOING TO [facility]. REPORT GIVEN TO KRISTAL AROUND 1530.
== END 2020-09-18 15:10 | DRG 280 ==
LOC: M.ERS 09:26 → M.2W 10:46 → M.ICU 10:46 → M.TBA-ER 10:46 → M.ICU 16:14 → M.2W 09-15 19:00
PROVIDERS: Emergency Medicine Emergency Medical Services; ADMIT Family Medicine; ATTEND Family Medicine
DX: I21.4 Non-ST elevation (NSTEMI) myocardial infarction (principal); G93.41 Metabolic encephalopathy; N17.0 Acute kidney failure with tubular necrosis; I50.43 Acute on chronic combined systolic (congestive) and diastolic (congestive) heart failure; E87.1 Hypo-osmolality and hyponatremia; I48.20 Chronic atrial fibrillation, unspecified; D68.59 Other primary thrombophilia; I13.0 Hypertensive heart and chronic kidney disease with heart failure and stage 1 through stage 4 chronic kidney disease, or unspecified chronic kidney disease; N39.0 Urinary tract infection, site not specified; M10.9 Gout, unspecified; N18.9 Chronic kidney disease, unspecified; I25.5 Ischemic cardiomyopathy; I25.10 Atherosclerotic heart disease of native coronary artery without angina pectoris; E11.22 Type 2 diabetes mellitus with diabetic chronic kidney disease; E11.65 Type 2 diabetes mellitus with hyperglycemia; E03.9 Hypothyroidism, unspecified; I34.0 Nonrheumatic mitral (valve) insufficiency; Z20.822 Contact with and (suspected) exposure to COVID-19; S82.61XA Displaced fracture of lateral malleolus of right fibula, initial encounter for closed fracture; Z60.2 Problems related to living alone; B96.1 Klebsiella pneumoniae [K. pneumoniae] as the cause of diseases classified elsewhere; T50.2X5A Adverse effect of carbonic-anhydrase inhibitors, benzothiadiazides and other diuretics, initial encounter; Y92.89 Other specified places as the place of occurrence of the external cause; Z79.01 Long term (current) use of anticoagulants; Z79.899 Other long term (current) drug therapy; Z95.0 Presence of cardiac pacemaker; W18.39XA Other fall on same level, initial encounter; Y93.89 Activity, other specified; Y99.8 Other external cause status

== ENCOUNTER 2020-09-28 10:52 | Inpatient (IN) | payer MEDICARE ==
[~2020-09-28] VITALS: Ht 170.2 cm; Wt 89.8 kg
--- NOTE | ~2020-09-28 | EMS ---
[facility] [place] [address] EMS Patient Care Report Name: VALERIE GRAJEDA Room: [place] [address] ADM IN .R.#: [id number] Admission: 09/28/20 Attend Phys: Karly Damon Discharge: Date of : 38 Report #: [id number] THIS REPORT FOR: //name// Report Transmitted: 09/28/2020 19:33 EMS Care Summary [facility] [id number] @ 09/28/2020 09:59 Incident Location [address] [place] [id number] Patient VALERIE GRAJEDA Female, 80 Years 1940 Patient Address [id number] [place] [address] Patient History Myocardial Infarction (ND),Type 2 diabetes mellitus,Chronic Kidney Disease,Congestive Heart Failure (CHF),Hypertension (HTN),Atrial Fibrillation,Pacemaker/AICD,Urinary tract infection, site not specified,Gout,Dysphagia, unspecified, Patient Allergies No known allergies, Patient Medications Coumadin, , Furosemide, Carvedilol, Albuterol, Acetaminophen, Bill Milk of Magnesia, Ascorbic Acid, Lisinopril, insulin, isophane, Tramadol, Chief Complaint Lethargy Disposition Transported No Lights/[place] Dispatch Reason Unconscious/Fainting [place] [address] [place] [address] EMS Patient Care Report Name: VALERIE GRAJEDA Room: [address] IN [facility]#: [id number] Admission: 09/28/20 Attend Phys: Karly Damon Discharge: Date of : 38 Report #: [id number] [facility] 319 DISPATCHED TO [facility], [address] [place] [address] ROOM 302, FOR AN 80 YEAR OLD FEMALE UNCONSCIOUS, BREATHING, WHO HAS A CARDIAC HISTORY. STARTING LOCATION IS [address] [place] [address] 319 ARRIVES ON SCENE WITHOUT INCIDENT. WITH JUMP BAG AND MONITOR ON COT, COT UNLOADED AND TAKEN TO 302. COT LEFT OUTSIDE ROOM WHILE 319 ENTERS WITH MONITOR AND JUMP BAG. IN 302, PATIENT (VALERIE) FOUND SITTING UPRIGHT IN FACILITY CHAIR, WITH FACILITY GARAGE DOOR INSTALLER STANDING NEXT TO HER. VALERIE IS ALERT, EYES OPENING LITTLE OVER USP TRACK TO PROVIDERS, ORIENTED X 4. BREATHING REGULAR/SHALLOW/TACHYPNEIC WHILE RECEIVING FACILITY OXYGEN AT 5 LPM VIA NASAL CANNULA. SKIN IS INTACT, PALE, CYANOSIS NOTED AT FINGERTIPS. SHE APPEARS LETHARGIC, BUT IN NO OBVIOUS ACUTE DISTRESS. ADDITIONAL FACILITY GARAGE DOOR INSTALLER ENTERS 302 WITH PAPERWORK INDICATING valerie's MEDICAL HISTORY AND ADMISSION RECORD AT FACILITY. NURSING STAFF STATES WHEN CHECKING ON VALERIE THIS MORNING, NURSING STAFF FOUND VALERIE UNRESPONSIVE TO ALL STIMULI FOR APPROXIMATELY 15-20 MINUTES. STAFF STATES valerie's FINGERTIPS APPEARED CYANOTIC, AND PULSE OXIMETRY MEASURED TO BE 84% ON HER BASELINE 2 LPM OXYGEN. STAFF RAISED valerie's OXYGEN ADMINISTRATION TO 5 LPM. STAFF STATES VALERIE BECAME ALERT AND RESPONSIVE JUST PRIOR TO [facility] ARRIVAL. STAFF REPORTS VALERIE ADMITTED 09/18/2020 FROM [facility] AFTER TREATMENT FOR NSTEMI. VALERIE REFUSED HER MORNING MEDICATIONS, BUT SHE HAS BEEN COMPLIANT WITH MEDICATIONS SINCE ADMISSION. VALERIE WAS TESTED NEGATIVE FOR COVID ON admission WITHOUT ANY FURTHER TESTING. SHE WEARS OXYGEN 2LPM NASAL CANNULA AT BASELINE. SHE WALKS WITH ASSISTANCE DUE TO FOOT FRACTURE; STAFF CONTINUES VALERIE APPEARS MORE LETHARGIC THAN USUAL FOR THREE DAYS. VALERIE ANSWERS SLOWLY WITH SHORT SENTENCES, BUT SHE EXHIBITS FULL ORIENTATION. VALERIE STATES FEELING LETHARGIC AND HAVING DYSPNEA FOR APPROXIMATELY ONE WEEK SINCE SHE WAS ADMITTED AT FACILITY. LETHARGY HAS BEEN GRADUALLY WORSENING, AND SHE STATES FEELING SYMPTOMS TODAY ARE THE WORST THEY HAVE BEEN. SHE DENIES DYSPNEA RELIEF WITH INCREASED OXYGEN ADMINISTRATION. MEDICAL RECORDS ASSISTANT ATTACHED, PULSE OXIMETRY AND LUNG SOUNDS ASSESSED NOTED. VALERIE ABLE TO TAKE DEEP, EQUAL BILATERAL BREATHS WITH CLEAR LUNG SOUNDS IN ALL BOCANEGRA. VALERIE DENIES RECENT DIAGNOSED ILLNESS, PAIN OR DISCOMFORT IN HEAD/NECK/CHEST/BACK/ABDOMEN, NAUSEA, VOMITING, DIARRHEA, CHANGES IN BOWEL MOVEMENTS OR URINATION, OR OTHER ACUTE COMPLAINT. VALERIE'S NASAL CANNULA EXCHANGED WITH EMS CANNULA ABLE TO ASSESS CAPNOGRAPHY, WITH OXYGEN ATTACHED TO PORTABLE TANK. VALERIE STATES [facility] PREFERRED DESTINATION. COT POSITIONED ACROSS FROM VALERIE'S CHAIR. [facility] ASSISTS VALERIE TO STAND, TURN, AND SIT ON COT WITHOUT INCIDENT. VALERIE SECURED WITH ALL SEAT BELTS. COT TAKEN TO AMBULANCE AND LOADED WITHOUT INCIDENT. IN AMBULANCE, VALERIE DENIES ACUTE CHANGE IN COMPLAINT OR SEVERITY. MEDICAL HISTORY AND SECONDARY ASSESSMENT PERFORMED NOTED. ALL TREATMENTS PERFORMED DOCUMENTED. TRANSPORT BEGINS TO [facility] PER VALERIE'S REQUEST. DURING TRANSPORT, VALERIE REMAINS SECURE IN UPRIGHT SEATED POSITION OF COMFORT. SHE REMAINS ALERT AND ORIENTED AT ALL TIMES, BUT CONTINUES TO APPEAR LETHARGIC. ONGOING ASSESSMENTS PERFORMED NOTED, WITH VALERIE SHOWING NO ACUTE CHANGE IN STATUS OR COMPLAINT. VITALS TREND APPROPRIATELY, AND TRANSPORT CONTINUES UNDER SUPPORTIVE CARE. 319 ARRIVES AT [facility] ED WITHOUT INCIDENT OR CHANGE IN VALERIE'S STATUS. VALERIE SIGNS NOTICE OF PRIVACY RIGHTS, AND A MASK [facility] [address] [facility] [place] [place] [address] EMS Patient Care Report Name: VALERIE GRAJEDA Room: [address] IN .R.#: [id number] Admission: 09/28/20 Attend Phys: Karly Damon Discharge: Date of : 38 Report #: [id number] APPLIED OVER NASAL CANNULA. COT UNLOADED AND TAKEN TO ED 4, WHERE 319 USES DRAW SHEET TO TRANSFER VALERIE LATERALLY TO ED BED WITHOUT INCIDENT. VERBAL REPORT GIVEN, AND ED RN SIGNS FOR TRANSFER OF CARE. 319 IS CLEAR AND AVAILABLE. GUALBERTO ARREDONDO, EMT-P. Initial Vitals @10:07SpO2: 100, @10:09SpO2: 100, @10:19SpO2: 98, @10:23SpO2: 97, @10:25SpO2: 99, @10:38SpO2: 97, @10:44SpO2: 98, @10:10 @10:39 @10:39 @10:07P: 72,R: 26, @10:20P: 76,R: 25,BP: 111/89, @10:38P: 73,R: 25,BP: 101/42, @10:45P: 70,R: 24,BP: 129/72, @10:56YfLZ1: 15, @10:50OuZZ6: 9, @10:44NvOP9: 20, @10:53SfYQ1: 17, @10:05UgHQ5: 21, @10:81FfTL6: 26, @10:07GCS: 14, @10:20GCS: 15, @10:38GCS: 15, @10:45GCS: 15, @10:09 @PTAGlucose: 102, Assessments @10:05MENTAL:SKIN:HEENT:LUNG SOUNDS:ABDOMEN:PELVIS//GI:EXTREMITIES:PULSE:NEURO: Impression Malaise Procedures @PTAOther - Medication - 5.000 Liters per Minute (l/min [fluid]) - Nasal CannulaResponse: Improved@10:08Other - Medication - 4.000 Liters per Minute (l/min [fluid]) - Nasal CannulaResponse: Unchanged@10:23 cc () Site: Antecubital-LeftResponse: UnchangedFailed@10:23 cc () Site: Antecubital-LeftResponse: UnchangedFailed@10:33 cc () Site: Hand-RightResponse: [place] [address] EMS Patient Care Report Name: VALERIE GRAJEDA Room: [address] IN [facility]#: [id number] Admission: 09/28/20 Attend Phys: Karly Damon Discharge: Date of : 38 Report #: [id number] UnchangedFailed@10:33 cc () Site: Hand-RightResponse: UnchangedFailed@10:07Digital respired carbon dioxide monitoring (regime/therapy)Response: UnchangedSucceeded@10:15Digital respired carbon dioxide monitoring (regime/therapy)Response: UnchangedSucceeded@10:20Digital respired carbon dioxide monitoring (regime/therapy)Response: UnchangedSucceeded@10:25Digital respired carbon dioxide monitoring (regime/therapy)Response: UnchangedSucceeded@10:38Digital respired carbon dioxide monitoring (regime/therapy)Response: UnchangedSucceeded@10:44Digital respired carbon dioxide monitoring (regime/therapy)Response: UnchangedSucceeded@10:1012-Lead ECGResponse: UnchangedSucceeded@10:393-Lead ECGResponse: UnchangedSucceeded@10:3912-Lead ECGResponse: UnchangedSucceeded 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,Other - Medication - 5.000 Liters per Minute (l/min [fluid]) - Nasal Cannula,Response: Improved 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 MACHINERY MECHANIC,BP: / M,PULSE: ,RR: R,SPO2: Ox,ETCO2: ,B,PAIN: ,GCS: , 10:05,Call Received 09:53,Dispatch Notified 09:53,Psap Call 09:59,Dispatched 09:59,En Route 10:03,On Scene 10:05,At Patient 10:07,Digital respired carbon dioxide monitoring (regime/therapy),Response: UnchangedSucceeded, 10:07,BP: / M,PULSE: ,RR: R,SPO2: 100 Ox,ETCO2: ,BG: ,PAIN: ,GCS: , 10:07,BP: / M,PULSE: 72,RR: 26 R,SPO2: Ox,ETCO2: ,BG: ,PAIN: ,GCS: , 10:07,BP: / M,PULSE: ,RR: R,SPO2: Ox,ETCO2: 15 ,BG: ,PAIN: ,GCS: , 10:07,BP: / M,PULSE: ,RR: R,SPO2: Ox,ETCO2: ,BG: ,PAIN: ,GCS: 14, 10:08,Other - Medication - 4.000 Liters per Minute (l/min [fluid]) - Nasal Cannula,Response: Unchanged 10:09,BP: / M,PULSE: ,RR: R,SPO2: 100 Ox,ETCO2: ,BG: ,PAIN: ,GCS: , 10:09,BP: / M,PULSE: ,RR: R,SPO2: Ox,ETCO2: ,BG: ,PAIN: ,GCS: , 10:10,12-Lead ECG,Response: UnchangedSucceeded, 10:10,BP: / M,PULSE: ,RR: R,SPO2: Ox,ETCO2: ,BG: ,PAIN: ,GCS: , 10:15,Digital respired carbon dioxide monitoring (regime/therapy),Response: UnchangedSucceeded, 10:15,BP: / M,PULSE: ,RR: R,SPO2: Ox,ETCO2: 9 ,BG: ,PAIN: ,GCS: , 10:19,BP: / M,PULSE: ,RR: R,SPO2: 98 Ox,ETCO2: ,BG: ,PAIN: ,GCS: , 10:20,Digital respired carbon dioxide monitoring (regime/therapy),Response: UnchangedSucceeded, 10:20,BP: 111/89 M,PULSE: 76,RR: 25 R,SPO2: Ox,ETCO2: ,BG: ,PAIN: ,GCS: , 10:20,BP: / M,PULSE: ,RR: R,SPO2: Ox,ETCO2: 20 ,BG: ,PAIN: ,GCS: , 10:20,BP: / M,PULSE: ,RR: R,SPO2: Ox,ETCO2: ,BG: ,PAIN: ,GCS: 15, 10:23, cc Site: Antecubital-Left,Response: UnchangedFailed, 10:23, cc Site: Antecubital-Left,Response: UnchangedFailed, [place] [address] EMS Patient Care Report Name: VALERIE GRAJEDA Room: [address] IN [facility]#: [id number] Admission: 09/28/20 Attend Phys: Karly Damon Discharge: Date of : 38 Report #: [id number] 10:23,BP: / M,PULSE: ,RR: R,SPO2: 97 Ox,ETCO2: ,BG: ,PAIN: ,GCS: , 10:25,Digital respired carbon dioxide monitoring (regime/therapy),Response: UnchangedSucceeded, 10:25,BP: / M,PULSE: ,RR: R,SPO2: 99 Ox,ETCO2: ,BG: ,PAIN: ,GCS: , 10:25,BP: / M,PULSE: ,RR: R,SPO2: Ox,ETCO2: 17 ,BG: ,PAIN: ,GCS: , 10:32,Depart Scene 10:33, cc Site: Hand-Right,Response: UnchangedFailed, 10:33, cc Site: Hand-Right,Response: UnchangedFailed, 10:38,Digital respired carbon dioxide monitoring (regime/therapy),Response: UnchangedSucceeded, 10:38,BP: / M,PULSE: ,RR: R,SPO2: 97 Ox,ETCO2: ,BG: ,PAIN: ,GCS: , 10:38,BP: 101/42 M,PULSE: 73,RR: 25 R,SPO2: Ox,ETCO2: ,BG: ,PAIN: ,GCS: , 10:38,BP: / M,PULSE: ,RR: R,SPO2: Ox,ETCO2: 21 ,BG: ,PAIN: ,GCS: , 10:38,BP: / M,PULSE: ,RR: R,SPO2: Ox,ETCO2: ,BG: ,PAIN: ,GCS: 15, 10:39,3-Lead ECG,Response: UnchangedSucceeded, 10:39,12-Lead ECG,Response: UnchangedSucceeded, 10:39,BP: / M,PULSE: ,RR: R,SPO2: Ox,ETCO2: ,BG: ,PAIN: ,GCS: , 10:39,BP: / M,PULSE: ,RR: R,SPO2: Ox,ETCO2: ,BG: ,PAIN: ,GCS: , 10:44,Digital respired carbon dioxide monitoring (regime/therapy),Response: UnchangedSucceeded, 10:44,BP: / M,PULSE: ,RR: R,SPO2: 98 Ox,ETCO2: ,BG: ,PAIN: ,GCS: , 10:44,BP: / M,PULSE: ,RR: R,SPO2: Ox,ETCO2: 26 ,BG: ,PAIN: ,GCS: , 10:44,At Destination 10:45,BP: 129/72 M,PULSE: 70,RR: 24 R,SPO2: Ox,ETCO2: ,BG: ,PAIN: ,GCS: , 10:45,BP: / M,PULSE: ,RR: R,SPO2: Ox,ETCO2: ,BG: ,PAIN: ,GCS: 15, 11:01,Call Closed Disclaimer v1.1 Copyright 2020 [employer] This EMS Care Summary contains data elements from the applicable legal record (which may be displayed differently). It is designed to provide pertinent information for the following purposes: continuity of care, clinical quality, and state data reporting. The complete legal record is available to ED staff and administrators of the receiving hospital in [employer]'s Patient Tracker. All data is provided "as is."
[2020-09-28 11:02] VITALS: BP 107/52
[2020-09-28 12:09] LABS: ABSOLUTE EOSINOPHILS 0.1 thou/uL (0.0-0.7); ABSOLUTE MONOCYTES 1.1 thou/uL (0.0-1.2); ABSOLUTE NEUTROPHILS 11.3 thou/uL (1.6-8.1); BASOPHILS 0.4 %; EOSINOPHILS 0.9 %; HEMATOCRIT 40.7 % (37.0-47.0); HEMOGLOBIN 13.1 gm/dL (12.0-15.0); LYMPHOCYTES 7.1 %; MCH 29.8 pg (26.0-34.0); MCHC 32.3 g/dL (28.0-37.0); MCV 92.3 fL (80.0-100.0); MONOCYTES 8.3 %; MPV 8.4 fl. (7.2-11.1); NUCLEATED RBCS 0 /100WBC; PLATELET COUNT* 229 thou/uL (150-400); POLYS 83.3 %; RBC 4.41 mil/uL (4.20-5.00); RDW-CV 17.3 % (10.5-14.5); WBC 13.5 thou/uL (4.0-11.0)
[2020-09-28 12:15] LABS: CALCIUM 8.3 mg/dL (8.5-10.1); CREATININE 1.6 mg/dL (0.6-1.3)
[2020-09-28 12:17] LABS: APTT 27.8 Seconds (25.0-31.3); INR 1.7; PROTIME 17.6 Seconds (9.20-11.50)
[2020-09-28 12:35] LABS: ALBUMIN 2.6 g/dL (3.4-5.0); TOTAL BILIRUBIN 0.7 mg/dL (<0.1-1.0); TOTAL PROTEIN 6.3 g/dL (6.4-8.2)
--- NOTE | 2020-09-28 17:13 | EKG ---
[place] [address] ELECTROCARDIOGRAM REPORT Name: MILIND GRAJEDA Room: [place] [address] ADM IN [facility].#: [id number] Admission: 09/28/20 Attend Phys: Lobito Johnson Discharge: Date of : 36 Date of Service: 09/28/20 1123 Report #: [id number] THIS REPORT FOR: //name// [facility] ED Test Date: 2020-09-28 Test Time: 11:23:04 Pat Name: MILIND GRAJEDA Department: Room: [facility] Gender: F Laboratory Tech: LADONNA : 1940 Requested By: Mal Salinas Order Number: [id number] MD: Samy Goins Measurements Intervals [place] Rate: 70 P: 0 RI: 178 QRS: 136 QRSD: 126 T: 208 QT: 518 QTc: 560 Interpretive Statements Ventricular-paced complexes No further analysis attempted due to paced rhythm Compared to ECG 09/14/2020 09:32:48 No significant changes Electronically Signed On 09-28-2020 17:13:48 CLASS A REGIONAL TRUCK DRIVER by Samy Goins [email or web address] <ELECTRONICALLY SIGNED> By: Samy Goins MD, [facility] 09/28/20 1713 1123 1123 Samy Goins MD, [facility] /EPI
[2020-09-28 17:25] VITALS: BP 99/43
[2020-09-28 20:08] VITALS: BP 99/49
[2020-09-28 22:28] VITALS: BP 104/52
[2020-09-29 01:47] VITALS: BP 111/48
[2020-09-29 05:30] VITALS: BP 94/46
[2020-09-29 05:30] LABS: ABSOLUTE BASOPHILS 0.1 thou/uL (0.0-0.2); ABSOLUTE EOSINOPHILS 0.2 thou/uL (0.0-0.7); ABSOLUTE MONOCYTES 0.9 thou/uL (0.0-1.2); ABSOLUTE NEUTROPHILS 6.3 thou/uL (1.6-8.1); BASOPHILS 0.7 %; EOSINOPHILS 2.6 %; HEMATOCRIT 37.3 % (37.0-47.0); HEMOGLOBIN 12.2 gm/dL (12.0-15.0); LYMPHOCYTES 11.8 %; MCHC 32.7 g/dL (28.0-37.0); MCV 91.8 fL (80.0-100.0); MONOCYTES 10.8 %; MPV 8.3 fl. (7.2-11.1); NUCLEATED RBCS 0 /100WBC; PLATELET COUNT* 193 thou/uL (150-400); POLYS 74.1 %; RBC 4.06 mil/uL (4.20-5.00); RDW-CV 17.3 % (10.5-14.5); WBC 8.4 thou/uL (4.0-11.0)
[2020-09-29 05:54] LABS: ALBUMIN 2.3 g/dL (3.4-5.0); CALCIUM 8.3 mg/dL (8.5-10.1); CREATININE 1.3 mg/dL (0.6-1.3); POTASSIUM 3.8 mmol/L (3.5-5.1); TOTAL BILIRUBIN 0.8 mg/dL (<0.1-1.0); TOTAL PROTEIN 5.6 g/dL (6.4-8.2)
[2020-09-29 08:00] VITALS: BP 122/56
[2020-09-29 11:50] VITALS: BP 125/61
--- NOTE | 2020-09-29 14:27 | 2DMMODE ---
[place] [address] 2 D/M-MODE ECHOCARDIOGRAM Name: MILIND GRAJEDA I Room: [address] IN [facility]#: [id number] Admission: 09/28/20 Attend Phys: Lobito Johnson Discharge: Date of : 38 Date of Service: 09/29/20 1427 Report #: [id number] THIS REPORT FOR: cc: Physician not on staff Physician not on staff Samy Goins MD [facility] ~ APPROVED REPORT Study performed: 09/29/2020 11:03:01 EXAM: Limited 2D Echocardiogram Patient Location: In-Patient Room #: [facility] Status: routine BSA: 1.96 HR: 70 bpm BP: 94/46 mmHg Rhythm: NSR Other Information Study Quality: Good Indications Congestive Heart Failure Dyspnea 2D Dimensions IVSd: 8.77 (7-11mm) LVDd: 45.13 mm PWd: 7.34 (7-11mm) LVDs: 39.23 (25-40mm) Volumes Left Atrial Volume (Systole) LA ESV Index: 52.40 mL/m2 Tricuspid Valve RAP Estimate: 5.00 mmHg TR Peak Gr.: 45.19 mmHg RVSP: 50.00 mmHg PA Pressure: 50.00 mmHg Left Ventricle The left ventricle is normal size. Regional wall motion abnormalities are noted with inferior hypo-akinesis. There is normal left ventricular wall thickness. Left ventricular systolic function is [facility] [address] [place] [address] 2 D/M-MODE ECHOCARDIOGRAM Name: MILIND GRAJEDA I Room: [address] IN .R.#: [id number] Admission: 09/28/20 Attend Phys: Lobito Johnson Discharge: Date of : 38 Date of Service: 09/29/20 1427 Report #: [id number] moderately decreased. LVEF is 35%. Right Ventricle The right ventricle is normal size. The right ventricular systolic function is normal. Pacemaker lead is present in the right ventricle. Atria Left atrium is severely dilated. Right atrium is moderately dilated. Aortic Valve Mild aortic valve sclerosis. Mild aortic regurgitation. Mitral Valve The mitral valve is normal in structure. Moderate to severe mitral regurgitation Tricuspid Valve The tricuspid valve is normal in structure. Mild tricuspid regurgitation. Moderate pulmonary hypertension. Pulmonic Valve The pulmonary valve is normal in structure. Great Vessels The aortic root is normal in size. IVC is normal in size and collapses >50% with inspiration. Pericardium There is no pericardial effusion. Left pleural effusion. <Conclusion> The left ventricle is normal size. There is normal left ventricular wall thickness. Left ventricular systolic function is moderately decreased. LVEF is 35%. The right ventricle is normal size. Left atrium is severely dilated. Right atrium is moderately dilated. Mild aortic valve sclerosis. Mild aortic regurgitation. The mitral valve is normal in structure. Moderate to severe mitral regurgitation The tricuspid valve is normal in structure. Mild [place] [address] 2 D/M-MODE ECHOCARDIOGRAM Name: TARASMILIND I Room: [address] IN ..#: [id number] Admission: 09/28/20 Attend Phys: Lobito Johnson Discharge: Date of : 38 Date of Service: 09/29/20 1427 Report #: [id number] Moderate pulmonary hypertension. There is no pericardial effusion. Regional wall motion abnormalities are noted with inferior hypo-akinesis. Pacemaker lead is present in the right ventricle. <ELECTRONICALLY SIGNED> By: Samy Goins MD, FACC 09/29/20 142 26 26 Samy Goins MD, FACC /INF
[2020-09-29 16:00] VITALS: BP 129/54
[2020-09-30] VITALS: BP 116/49
[2020-09-30 04:00] VITALS: BP 124/61
[2020-09-30 05:02] LABS: ALBUMIN 2.5 g/dL (3.4-5.0); CALCIUM 8.5 mg/dL (8.5-10.1); CREATININE 1.3 mg/dL (0.6-1.3); POTASSIUM 3.9 mmol/L (3.5-5.1); TOTAL BILIRUBIN 1.1 mg/dL (<0.1-1.0); TOTAL PROTEIN 6.1 g/dL (6.4-8.2)
[2020-09-30 07:54] VITALS: BP 101/59
[2020-09-30 16:58] VITALS: BP 125/71
[2020-10-01] VITALS: BP 127/66
[2020-10-01 03:57] LABS: INR 2.3
[2020-10-01 04:00] VITALS: BP 151/79
[2020-10-01 04:08] LABS: ALBUMIN 2.6 g/dL (3.4-5.0); CREATININE 1.6 mg/dL (0.6-1.3); POTASSIUM 4.6 mmol/L (3.5-5.1); TOTAL PROTEIN 6.5 g/dL (6.4-8.2)
[2020-10-01 09:15] VITALS: BP 150/84
[2020-10-01 12:00] VITALS: BP 106/84
[2020-10-01 16:00] VITALS: BP 144/78
[2020-10-01 20:00] VITALS: BP 143/71
[2020-10-02] VITALS: BP 132/73
[2020-10-02 04:00] VITALS: BP 139/82
[2020-10-02 04:40] LABS: ALBUMIN 2.6 g/dL (3.4-5.0); CREATININE 1.6 mg/dL (0.6-1.3); POTASSIUM 4.4 mmol/L (3.5-5.1); TOTAL BILIRUBIN 0.9 mg/dL (<0.1-1.0); TOTAL PROTEIN 6.5 g/dL (6.4-8.2)
[2020-10-02 04:53] LABS: CALCIUM 8.7 mg/dL (8.5-10.1); CREATININE 1.6 mg/dL (0.6-1.3); PHOSPHORUS* 4.1 mg/dL (2.5-4.9)
[2020-10-02 08:25] VITALS: BP 103/73
[2020-10-02] MEDS ORDERED: LEVEMIR100 UNIT/2 SUBQ (09:06)
[2020-10-02 10:02] LABS: BE -5.1 mmol/L (-2 to +3); PCO2 25.2 mmHg (35.0-45.0); pH 7.448 (7.340-7.450)
[2020-10-02 10:05] LABS: PO2 52.8 mmHg (75.0-100.0)
[2020-10-02 11:56] VITALS: BP 117/61
[2020-10-02 16:56] VITALS: BP 123/68
--- NOTE | 2020-10-02 18:17 | CON ---
[address] [address] CONSULTATION Name: MILIND GRAJEDA I Room: [address] IN .R.#: [id number] Admission: 09/28/20 Attend Phys: Karly Damon Discharge: Date of : 38 Report #: [id number] THIS REPORT FOR: cc: Physician not on staff Physician not on staff ~ Farrukh Zhou MD DATE OF SERVICE: 10/02/2020 REQUESTING PHYSICIAN: Dr. Johnson. INDICATION FOR CONSULTATION: Shortness of breath. HISTORY OF PRESENT ILLNESS: This is an 80-year-old female with past medical history as mentioned below. This does include a history of congestive heart failure with a low left ventricular ejection fraction. 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 The patient does appear to have some renal disease at baseline as well. Her lowest creatinine I can find recently is around 1.3. The patient had a recent admission to this hospital and subsequently went to a long-term care facility that is a rehabilitation and has now been transferred back here on 09/28/2020. The patient is reported to have increasing shortness of breath as well as decreased responsiveness on initial presentation. The patient has been on a BiPAP while asleep. She is reported to have initially improved and then had a decline in her respiratory status again. The patient's last available chest x-ray is from the and it does show bilateral pleural effusions, right greater than left. It will be possible that there is a right middle or lower lobe infiltrate as well. She does appear to have fluid overload back then, but this is from 09/28/2020. The patient is also reported to be less interactive today. She has been seen by the speech therapist. I do not have their formal consult available. The patient did not have any additional complaints, although she did say that she was short of breath. When I asked her, she provide a limited history. She does appear to have significant swelling of lower extremities and does have a boot in place in the right leg. She did not appear to be in any distress. She was on 4 liters nasal cannula and did appear comfortable at the time of my evaluation. The patient was; however, lying down and having a lunch at the time of my evaluation. The patient answered to the negative for 10 of the questions for review of systems; however, her ability to understand these questions appears to be limited. PAST MEDICAL HISTORY: Coronary artery disease, congestive heart failure. There is a recent echocardiogram, which shows a left ventricular ejection fraction of 35%, pulmonary artery systolic of 50. This elevation in the pulmonary artery systolic pressure is longstanding. 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 Mild renal insufficiency at baseline, creatinine at baseline appears to be mildly elevated to around 1.3. Recent injury to the right ankle with a minimally displaced fracture. She has a boot in place. Gout, diabetes, open reduction and internal fixation of the right wrist in the past. She has a pacemaker and a biventricular AICD in place, thyroidectomy, hysterectomy. SOCIAL HISTORY: Lifetime nonsmoker. No known history of heavy alcohol use or illegal drug use. CURRENT MEDICATIONS: List in [employer] reviewed. HOME MEDICATIONS: List in [employer] reviewed. FAMILY HISTORY: No pertinent family history. ALLERGIES: No known drug allergies. PHYSICAL EXAMINATION: GENERAL: She was fully awake; however, provided a limited history. Did not answer orientation questions. VITAL SIGNS: Had a pulse of 72 and a blood pressure of 117/61. She was saturating 99% on 4 liters nasal cannula. She was breathing at 18, afebrile with a temperature of 36.4. Body mass index is 29. HEENT: Head is normocephalic and atraumatic. Pupils are equal and reactive. There is no throat erythema. NECK: Does not show raised JVP, asymmetry, mass or lymph nodes. CHEST: Symmetrical expansion on inspection and palpation. On auscultation, breath sounds are decreased at bilateral lung bases, more decreased at the right lung base. HEART: Irregular. There is a minimal systolic murmur. ABDOMEN: Soft and nontender. EXTREMITIES: Lower extremities do show 2 to 3+ edema bilaterally, no calf tenderness. SKIN: Dry and intact. NEUROLOGICAL: She did move all extremities bilaterally equally and spontaneously. No focal deficit was identified. IMAGING DATA: The patient's chest x-ray from the 8th is as discussed above. The pleural effusions as well as increase in pulmonary vascular congestion and infiltrates, if present, do appear to be new compared with the patient's previous chest x-rays. The patient did have a CT head as well today. This is in [employer] and is reviewed. [address] [address] CONSULTATION Name: MILIND GRAJEDA I Room: [address] IN [facility]#: [id number] Admission: 09/28/20 Attend Phys: Karly Damon Discharge: Date of : 38 Report #: [id number] LABORATORY DATA: The patient's lab work, which do show a creatinine elevated to 1.6, note baseline around 1.3 and elevated BUN in [facility] reviewed. She is anticoagulated with Coumadin. CBC in [facility] reviewed. COVID-19 antigen is negative. Arterial blood gas does show a compensated metabolic acidosis. ASSESSMENT AND PLAN: 1. Pleural effusions. She does have bilateral pleural effusions, right greater than left. Not only partly these appear to be secondary to congestive heart failure; however, I suspect that will be possible that she has aspiration pneumonia on the right side as well. We will go ahead and obtain a CT chest now and assess this further. It appears likely to me that the patient may benefit from thoracentesis unless these effusions are significantly improved since the last chest x-ray. The patient does not, however, appear to be in any distress at this time and therefore to reduce risk of complications from thoracentesis unless it is urgent, I will be inclined to hold Coumadin for 2-3 days and then plan on thoracentesis possibly on Monday. Certainly, this could be done sooner if her respiratory status worsens. 2. Acute hypoxemic respiratory failure. The patient's baseline oxygen needs are not known to me. We will try to get more information regarding this. Meanwhile, I agree with continuing with oxygen and titrate oxygen as indicated. She has also been on a BiPAP while asleep and I agree with the same as well. I recommend also continuing with BiPAP while asleep as already ordered. 3. Congestive heart failure, acute on chronic systolic. She is fluid overloaded. 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 The Cardiology service is also on the case. 4. Pulmonary infiltrates/aspiration. We will await speech recommendations. It does appear to me that the patient has been chronically aspirating. Strongly recommend aspiration precautions, sit her up fully for oral intake if oral intake is appropriate per speech. I will review the CT and then consider antibiotics, possibly Zosyn. 5. Atrial fibrillation/status post automatic implantable cardioverter defibrillator and pacemaker placement. As above, I tentatively plan to hold Coumadin over the weekend for thoracentesis later. 6. Altered mental status. See discussion above. Thanks for this consultation. <ELECTRONICALLY SIGNED> By: Farrukh Zhou MD 10/02/20 1817 1252 [id number] Zhou MD /nt
[2020-10-02 19:30] VITALS: BP 100/56
[2020-10-03] VITALS: BP 114/67
[2020-10-03 04:00] VITALS: BP 114/57
[2020-10-03 08:00] VITALS: BP 103/57
[2020-10-03 11:41] VITALS: BP 86/55
[2020-10-03 12:04] LABS: ABSOLUTE BASOPHILS 0.1 thou/uL (0.0-0.2); ABSOLUTE EOSINOPHILS 0.3 thou/uL (0.0-0.7); ABSOLUTE MONOCYTES 0.7 thou/uL (0.0-1.2); ABSOLUTE NEUTROPHILS 8.2 thou/uL (1.6-8.1); BASOPHILS 0.6 %; EOSINOPHILS 2.5 %; HEMATOCRIT 39.6 % (37.0-47.0); HEMOGLOBIN 12.8 gm/dL (12.0-15.0); LYMPHOCYTES 9.7 %; MCH 30.2 pg (26.0-34.0); MCHC 32.4 g/dL (28.0-37.0); MCV 93.2 fL (80.0-100.0); MONOCYTES 6.8 %; MPV 8.7 fl. (7.2-11.1); NUCLEATED RBCS 0 /100WBC; PLATELET COUNT* 205 thou/uL (150-400); POLYS 80.4 %; RBC 4.25 mil/uL (4.20-5.00); RDW-CV 18.2 % (10.5-14.5); WBC 10.2 thou/uL (4.0-11.0)
[2020-10-03 12:16] LABS: INR 2.2; PROTIME 22.4 Seconds (9.20-11.50)
[2020-10-03 12:19] LABS: ALBUMIN 2.2 g/dL (3.4-5.0); CALCIUM 7.6 mg/dL (8.5-10.1); CREATININE 1.6 mg/dL (0.6-1.3); POTASSIUM 4.5 mmol/L (3.5-5.1); TOTAL BILIRUBIN 0.8 mg/dL (<0.1-1.0)
[2020-10-03 14:17] LABS: URINE BILIRUBIN NEGATIVE (Negative); URINE BLOOD TRACE (Negative); URINE CLARITY CLEAR; URINE COLOR YELLOW; URINE GLUCOSE-RANDOM NEGATIVE (Negative); URINE KETONES NEGATIVE (Negative); URINE LEUKOCYTES-REFLEX NEGATIVE (Negative); URINE NITRITE-REFLEX NEGATIVE (Negative); URINE PROTEIN NEGATIVE (Negative); URINE SPECIFIC GRAVITY 1.015 (1.005-1.030); URINE UROBILINOGEN 0.2 E.U./dl (0.2-1.0)
[2020-10-03 20:00] VITALS: BP 128/66; BP 160/91
[2020-10-03 23:55] VITALS: BP 104/54
[2020-10-04 05:19] LABS: ABSOLUTE EOSINOPHILS 0.3 thou/uL (0.0-0.7); ABSOLUTE LYMPHOCYTES 1.2 thou/uL (0.8-5.3); ABSOLUTE MONOCYTES 0.7 thou/uL (0.0-1.2); ABSOLUTE NEUTROPHILS 6.8 thou/uL (1.6-8.1); BASOPHILS 0.2 %; EOSINOPHILS 3.4 %; HEMOGLOBIN 12.3 gm/dL (12.0-15.0); LYMPHOCYTES 12.8 %; MCH 30.5 pg (26.0-34.0); MCHC 33.2 g/dL (28.0-37.0); MCV 91.8 fL (80.0-100.0); MONOCYTES 8.3 %; MPV 8.7 fl. (7.2-11.1); NUCLEATED RBCS 0 /100WBC; PLATELET COUNT* 191 thou/uL (150-400); POLYS 75.3 %; RBC 4.03 mil/uL (4.20-5.00); RDW-CV 17.3 % (10.5-14.5); WBC 9.1 thou/uL (4.0-11.0)
[2020-10-04 05:41] LABS: PROTIME 20.8 Seconds (9.20-11.50)
[2020-10-04 05:46] LABS: ALBUMIN 2.2 g/dL (3.4-5.0); CALCIUM 8.2 mg/dL (8.5-10.1); CREATININE 1.5 mg/dL (0.6-1.3); POTASSIUM 4.3 mmol/L (3.5-5.1); PREALBUMIN 14.5 mg/dL (18.0-35.7); TOTAL BILIRUBIN 0.6 mg/dL (<0.1-1.0); TOTAL PROTEIN 5.6 g/dL (6.4-8.2)
[2020-10-04 08:00] VITALS: BP 122/59
[2020-10-04 11:35] VITALS: BP 102/59
[2020-10-04 17:12] VITALS: BP 105/56
[2020-10-04 20:00] VITALS: BP 99/51
[2020-10-05] VITALS: BP 95/49
[2020-10-05 04:00] VITALS: BP 92/51
[2020-10-05 04:43] LABS: ABSOLUTE EOSINOPHILS 0.3 thou/uL (0.0-0.7); ABSOLUTE LYMPHOCYTES 1.2 thou/uL (0.8-5.3); ABSOLUTE MONOCYTES 0.7 thou/uL (0.0-1.2); ABSOLUTE NEUTROPHILS 5.9 thou/uL (1.6-8.1); BASOPHILS 0.4 %; HEMATOCRIT 37.6 % (37.0-47.0); HEMOGLOBIN 12.3 gm/dL (12.0-15.0); LYMPHOCYTES 14.7 %; MCH 30.3 pg (26.0-34.0); MCHC 32.6 g/dL (28.0-37.0); MCV 92.9 fL (80.0-100.0); MONOCYTES 8.5 %; MPV 8.6 fl. (7.2-11.1); NUCLEATED RBCS 0 /100WBC; PLATELET COUNT* 187 thou/uL (150-400); POLYS 72.4 %; RBC 4.05 mil/uL (4.20-5.00); RDW-CV 17.7 % (10.5-14.5); WBC 8.2 thou/uL (4.0-11.0)
[2020-10-05 04:44] LABS: CALCIUM 7.3 mg/dL (8.5-10.1); CREATININE 1.8 mg/dL (0.6-1.3); POTASSIUM 4.8 mmol/L (3.5-5.1)
[2020-10-05 04:46] LABS: INR 1.7; PROTIME 17.5 Seconds (9.20-11.50)
[2020-10-05 07:45] VITALS: BP 121/72
[2020-10-05 11:41] VITALS: BP 104/58
[2020-10-05 15:51] VITALS: BP 129/78
[2020-10-05 20:00] VITALS: BP 134/63
[2020-10-06 00:30] VITALS: BP 107/62
[2020-10-06 04:25] LABS: INR 1.3
[2020-10-06 05:31] VITALS: BP 117/58
[2020-10-06 08:00] VITALS: BP 97/76
[2020-10-06 11:31] LABS: HEMOGLOBIN 12.3 gm/dL (12.0-15.0); MCH 29.6 pg (26.0-34.0); MCHC 30.8 g/dL (28.0-37.0); MCV 95.9 fL (80.0-100.0); MPV 9.3 fl. (7.2-11.1); NUCLEATED RBCS 0 /100WBC; PLATELET COUNT* 183 thou/uL (150-400); RBC 4.17 mil/uL (4.20-5.00); RDW-CV 19.3 % (10.5-14.5); WBC 7.6 thou/uL (4.0-11.0)
[2020-10-06 11:40] LABS: ALBUMIN 2.4 g/dL (3.4-5.0); CALCIUM 7.8 mg/dL (8.5-10.1); CREATININE 1.9 mg/dL (0.6-1.3); POTASSIUM 4.8 mmol/L (3.5-5.1); TOTAL BILIRUBIN 0.6 mg/dL (<0.1-1.0); TOTAL PROTEIN 5.5 g/dL (6.4-8.2)
[2020-10-06 12:01] LABS: ABSOLUTE EOSINOPHILS 0.2 thou/uL (0.0-0.7); ABSOLUTE LYMPHOCYTES 1.3 thou/uL (0.8-5.3); ABSOLUTE MONOCYTES 0.8 thou/uL (0.0-1.2); ABSOLUTE NEUTROPHILS 5.3 thou/uL (1.6-8.1); ANISOCYTOSIS 1+; PLATELET ESTIMATE ADEQUATE; POIKILOCYTOSIS 1+
[2020-10-06 15:32] LABS: BF RBC <1000 /mm3; TOTAL CELL COUNT 77 /mm3
[2020-10-06 15:33] LABS: CLARITY CLEAR; TOTAL VOLUME 1360 ml
[2020-10-06 16:39] VITALS: BP 126/60
[2020-10-06 16:52] LABS: BF POLYS 16 %; SOURCE THOROCENTESIS
[2020-10-06 16:53] LABS: BF LYMPHOCYTES 74 %; BF TISSUE 2 /100 WBC
[2020-10-06 20:00] VITALS: BP 167/80
[2020-10-06 23:35] VITALS: BP 158/96
[2020-10-07 00:17] LABS: BE -7.4 mmol/L (-2 to +3); PO2 86.6 mmHg (75.0-100.0)
[2020-10-07 00:21] LABS: pH 7.247 (7.340-7.450)
[2020-10-07 04:04] VITALS: BP 143/74
[2020-10-07 04:59] LABS: INR 1.3; PROTIME 13.2 Seconds (9.20-11.50)
[2020-10-07 05:11] LABS: ALBUMIN 2.2 g/dL (3.4-5.0); CREATININE 2.2 mg/dL (0.6-1.3); POTASSIUM 5.1 mmol/L (3.5-5.1); TOTAL BILIRUBIN 0.8 mg/dL (<0.1-1.0); TOTAL PROTEIN 6.4 g/dL (6.4-8.2)
[2020-10-07 05:45] LABS: ABSOLUTE LYMPHOCYTES 0.3 thou/uL (0.8-5.3); ABSOLUTE MONOCYTES 0.3 thou/uL (0.0-1.2); ABSOLUTE NEUTROPHILS 11.3 thou/uL (1.6-8.1); BASOPHILS 0.1 %; EOSINOPHILS 0.1 %; HEMATOCRIT 48.2 % (37.0-47.0); LYMPHOCYTES 2.6 %; MCHC 31.9 g/dL (28.0-37.0); MCV 94.1 fL (80.0-100.0); MONOCYTES 2.3 %; MPV 8.5 fl. (7.2-11.1); NUCLEATED RBCS 0 /100WBC; PLATELET COUNT* 191 thou/uL (150-400); POLYS 94.9 %; RBC 5.12 mil/uL (4.20-5.00); RDW-CV 18.3 % (10.5-14.5); WBC 11.9 thou/uL (4.0-11.0)
[2020-10-07 06:12] LABS: HEMOGLOBIN 15.4 gm/dL (12.0-15.0)
[2020-10-07 08:55] VITALS: BP 139/60
[2020-10-07 14:52] LABS: CALCIUM 8.7 mg/dL (8.5-10.1); CREATININE 2.1 mg/dL (0.6-1.3); POTASSIUM 4.5 mmol/L (3.5-5.1)
[2020-10-07 19:35] VITALS: BP 116/55
[2020-10-08 08:00] VITALS: BP 107/51
[2020-10-08 09:08] LABS: BODY FLUID PROTEIN 0.8 g/dL (())
--- NOTE | 2020-10-08 16:06 | PATH ---
[address] [address] PATHOLOGY RPT PROCEDURE Name: MILIND GRAJEDA I Room: [address] IN [facility]#: [id number] Admission: 09/28/20 Date of : 38 Discharge: Report #: [id number] Path Case #: [id number] Note [facility] Accession Number: [id number] TESTS RESULT FLAG UNITS REF RANGE LAB Clinician Provided Cytology Information No. of containers..01 Other (Miscellaneous) Source: RIGHT PLEURAL FLUID DIAGNOSIS: 02 RIGHT PLEURAL FLUID NEGATIVE FOR MALIGNANT CELLS. FEW REACTIVE MESOTHELIAL CELLS, INFLAMMATORY CELLS AND RBCs. THIS INTERPRETATION INCLUDES EVALUATION OF A CELL BLOCK. Signed out by: 02 Reynaldo Russo MD, Pathologist NPI- [id number] Performed by: 01 Ciara Cavanaugh, Telecom Sales Consultant ([facility]) Gross description: 01 100ML, HAZY YELLOW, 1 TP 1 CB /LCS 10/07/2020 1419 Local FLAG LEGEND: L-Low Normal,H-High Normal,LL-Alert Low,HH-Alert High <-Panic Low,>-Panic High,A-Abnormal,AA-Critical Abnormal Performed at: [address] [place] [address] James Dickinson MD, [address] [place] [address] [address] [facility], [place] [address] Reynaldo Russo MD, Specimen Comment: A courtesy copy of this report has been sent to [phone] Specimen Comment: [phone], Specimen Comment: Report sent to DR BILLS,DR SLAUGHTER / DR LECHUGA Performed at: [address], [place], [place] [address] MD James Dickinson MD Phone: [phone]
[2020-10-09 04:18] LABS: INR 1.1; PROTIME 11.7 Seconds (9.20-11.50)
[2020-10-09 08:00] VITALS: BP 108/52
[2020-10-09 16:00] VITALS: BP 119/53
== END 2020-10-10 00:55 | DRG 291 ==
LOC: M.ERS 10:52 → M.2W 13:25 → M.TBA-ER 13:25 → M.2W 20:20
PROVIDERS: Emergency Medicine Emergency Medical Services; Internal Medicine; Internal Medicine Critical Care Medicine; Registered Nurse; ADMIT Internal Medicine; ATTEND Internal Medicine
DX: I13.0 Hypertensive heart and chronic kidney disease with heart failure and stage 1 through stage 4 chronic kidney disease, or unspecified chronic kidney disease (principal); I50.43 Acute on chronic combined systolic (congestive) and diastolic (congestive) heart failure; J96.01 Acute respiratory failure with hypoxia; G93.41 Metabolic encephalopathy; I48.20 Chronic atrial fibrillation, unspecified; N17.9 Acute kidney failure, unspecified; J91.8 Pleural effusion in other conditions classified elsewhere; I42.9 Cardiomyopathy, unspecified; M10.9 Gout, unspecified; E11.22 Type 2 diabetes mellitus with diabetic chronic kidney disease; I25.10 Atherosclerotic heart disease of native coronary artery without angina pectoris; I08.1 Rheumatic disorders of both mitral and tricuspid valves; N18.9 Chronic kidney disease, unspecified; E78.5 Hyperlipidemia, unspecified; I95.9 Hypotension, unspecified; E03.9 Hypothyroidism, unspecified; Z51.5 Encounter for palliative care; Z66 Do not resuscitate; Z20.822 Contact with and (suspected) exposure to COVID-19; Z79.01 Long term (current) use of anticoagulants; Z79.4 Long term (current) use of insulin; Z79.899 Other long term (current) drug therapy; Z95.810 Presence of automatic (implantable) cardiac defibrillator; Z90.710 Acquired absence of both cervix and uterus; Z99.81 Dependence on supplemental oxygen